=== PATIENT | female | born 2000 | race Caucasian/White ===

== ENCOUNTER → 2019-12-09 11:51 | Outpatient (CLI) | payer BC, SELFPAY ==
--- NOTE | ~2019-12-09 | CT_ITS ---
EXAMINATION: CT sinus wo con DATE: 12/09/2019 12:08 INDICATION: Chronic sinusitis. Chronic congestion. TECHNIQUE: Computed tomography (CT) of the paranasal sinuses was performed without contrast. Iterativ e reconstruction technique was employed. Exam dose: 287.09 mGy-cm total exam DLP. COMPARISON: None FINDINGS: The mastoid air cells are normally developed and aerated. The paranasal sinuses are normally developed and aerated. The ostiomeatal units are patent. There is mild leftward bowing of the upper portion of the nasal septum, the lower portion of the nasa l septum is essentially midline. Mild intralamellar cell of the left middle nasal turbinate. There is prominent soft tissue thickening of the nasal turbinates bilaterally. IMPRESSION: Mild nasal septum bowing Mild intralamellar cell of left middle nasal turbinate Patent ostiomeatal units, paranasal sinuses and mastoid air cells Reviewed, dictated and finalized at [facility]. Reviewed, dictated and finalized at [facility].
== END ==
PROVIDERS: Visit Provider Otolaryngology
DX: J32.9 Chronic sinusitis, unspecified (principal); R93.0 Abnormal findings on diagnostic imaging of skull and head, not elsewhere classified
CPT/HCPCS: 70486